=== PATIENT | male | born 1980 | race Caucasian/White ===

== ENCOUNTER 2021-02-02 11:05 | Emergency (ER) | payer MEDICAID ==
[~2021-02-02] VITALS: Ht 172.7 cm; Wt 77.1 kg
--- NOTE | 2021-02-02 11:53 | Diagnostic Imaging Report ---
Clinical indication: Patient stated that he has had a headache for 3 days. Exam: Axial CT scan of the brain without IV contrast with coronal and sagittal reformatted images. Auto Exposure Controls were utilized during the CT exam to meet ALARA standards for radiation dose reduction. Comparison: None. Findings: There is a 5 mm circumscribed area of fat density in the suprasellar cistern region just posterior to the clinoid region which may represent a small lipoma versus dermoid. There is note of slight diffuse increased density involving the dural venous sinuses. Otherwise, there is no evidence of acute cerebral infarct, intracranial hemorrhage, or gross mass effect. The brain parenchymal volume appears appropriate for patient's age. There is normal valladares-white matter distinction. There is no significant midline shift or herniation. There is no evidence of hydrocephalus. The basal cisterns are unremarkable. The skull, extracranial soft tissue, and orbits are unremarkable. There is mild ethmoid sinus disease. Temporal bones show no significant abnormality. Impression: 1: There is no evidence of acute cerebral infarct, intracranial hemorrhage, brain herniation or midline shift. 2: There is slight increased density throughout the dural venous sinuses which may be seen with hemoconcentration and/or dehydration. Clinical correlation is suggested. 3: Incidental note of a 5 mm circumscribed area of fat density in the suprasellar region which may represent a lipoma or dermoid. 4: Mild ethmoid sinus disease. Otherwise, unremarkable CT scan of the brain. Results of this report discussed with Dr. Prem Paul via the telephone on 02/02/2021 at 1148 hours. Dictated by: Dictated on workstation # [id number]
--- NOTE | 2021-02-02 12:03 | Diagnostic Imaging Report ---
Indication: Chest pain. No prior studies are available for comparison. The heart size is normal. Lungs are clear. No infiltrates are detected. No effusion or pneumothorax is identified. IMPRESSION: No acute cardiopulmonary process is detected. Dictated by: Dictated on workstation # [id number]
[2021-02-02] MEDS ORDERED: fentaNYL INJ 100 MCG/2 ML AMP IVP STA (12:17)
[2021-02-02] MEDS ORDERED: KETOROLAC 30 MG/ML VIAL IVP STA (12:17)
[2021-02-02] MEDS ORDERED: ORPHENADRINE 60 MG/2 ML (NORFLEX) AMP (ED ONLY) IVP STA (12:17)
[2021-02-02 12:23] LABS: BASOPHILS % (AUTO) 0 % (0-10); EOSINOPHILS # (AUTO) 0.2 10^3/uL (0.0-0.3); EOSINOPHILS % (AUTO) 2 % (0-10); HEMATOCRIT 47 % (40-54); HEMOGLOBIN 15.9 G/DL (13.3-17.7); LYMPHOCYTES # (AUTO) 2.7 X 10^3 (1.0-4.0); LYMPHOCYTES % (AUTO) 28 % (12-44); MEAN CORPUSCULAR HEMOGLOBIN 29 PG (25-34); MEAN CORPUSCULAR HGB CONC 34 G/DL (32-36); MEAN CORPUSCULAR VOLUME 85 FL (80-99); MEAN PLATELET VOLUME 10.7 FL (7.4-10.4); MONOCYTES # (AUTO) 0.8 X 10^3 (0.0-1.0); MONOCYTES % (AUTO) 9 % (0-12); NEUTROPHILS # (AUTO) 5.7 X 10^3 (1.8-7.8); NEUTROPHILS % (AUTO) 60 % (42-75); PLATELET COUNT 307 10^3/uL (130-400); WHITE BLOOD COUNT 9.5 10^3/uL (4.3-11.0)
--- NOTE | 2021-02-02 12:24 | ED General ---
General Chief Complaint: Neuro-Stroke Like Symptoms Stated Complaint: RT SIDED WEAKNESS; ALTERED VISION Nursing Triage Note: Patient reports he has had a headache for 3 days, also reports blurred vision, right sided weakness, decreased sensation on the right side, and intermittent right chest and shoulder pain for 3 days. Source of Information: Patient History of Present Illness Date Seen by Provider: Feb 02, 2021 Time Seen by Provider: 11:17 Initial Comments 40-year-old male presenting with complaints of right-sided weakness and numbness as well as pain in his neck and head. He states this has been going on for the last 3 days. He has had some blurred vision and intermittent spots in his vision. He has been taking medicine for blood pressure as well as multiple psych meds has not taken anything for over a month now. He denies any trauma to his head or neck. He went to the urgent care clinic at the insistence of his and the were concerned he might be having a stroke and sent him to the ER. He denies any fever or chills. He has had no nausea, vomiting, cough, abdominal pain, diarrhea, pain with urination. He does have some right-sided chest pain going into his arm. Timing/Duration: 3-4 Days Severity: Moderate Associated Systoms: No Cough, No Diaphoresis, No Fever/Chills; Headaches; No Loss of Appetite; Malaise; No Nausea/Vomiting, No Rash, No Seizure, No Shortness of Air, No Syncope Allergies and Home Medications Allergies Coded Allergies: red dye (Verified Allergy, Unknown, 02/02/21) Home Medications Cyclobenzaprine HCl 10 Mg Tablet, 10 MG PO Q8H PRN for SPASMS Prescribed by: HOWIE MADSEN on 02/02/21 1403 Duloxetine HCl 30 Mg Capsule.dr, 30 MG PO DAILY Prescribed by: HOWIE MADSEN on 02/02/21 1403 Hydrocodone/Acetaminophen 1 Each Tablet, 1 TAB PO Q4H PRN for PAIN-SEVERE (8-10) Prescribed by: HOWIE MADSEN on 02/02/21 1404 Hydroxyzine Pamoate 50 Mg Capsule, 50 MG PO BID Prescribed by: HOWIE MADSEN on 02/02/21 1403 Lisinopril 10 Mg Tablet, 10 MG PO DAILY Prescribed by: HOWIE MADSEN on 02/02/21 1403 Quetiapine Fumarate 100 Mg Tablet, 100 MG PO BID Prescribed by: HOWIE MADSEN on 02/02/21 1403 Patient Home Medication List Home Medication List Reviewed: Yes Review of Systems Review of Systems Constitutional: No chills, No fever EENTM: see HPI, blurred vision; No ear pain Respiratory: No cough, No short of breath Cardiovascular: see HPI, chest pain (Right-sided chest pain) Gastrointestinal: no symptoms reported Genitourinary: no symptoms reported Musculoskeletal: see HPI, neck pain (Pain in his neck at the base of his skull) Skin: no symptoms reported; No rash Psychiatric/Neurological: Anxiety, Headache Hematologic/Lymphatic: Denies Blood Clots Past Qrsfrip-Zfkmxj-Paafab Hx Patient Social History Tobacco Use?: Yes Tobacco type used: Cigarettes Smoking Status: Current Everyday Smoker Smokeless Tobacco Frequency: Current Everyday User Substance use?: No Alcohol Use?: Yes Alcohol type: Beer Alcohol Frequency: Couple times a week Pt feels they are or have been: No Past Medical History Surgery/Hospitalization HX: Patient reports a history of hypertension, appendectomy and colectomy. Physical Exam Vital Signs Vital Signs - First Documented 02/02/21 11:53 Temp 37.0 Pulse 87 Resp 18 B/P (MAP) 132/81 (98) Pulse Ox 97 O2 Delivery Room Air Capillary Refill : Less Than 3 Seconds Height, Weight, BMI Height: '" Weight: lbs. oz. kg; 25.00 BMI Method: General Appearance: WD/WN, Anxious HEENT: PERRL/EOMI, Normal ENT Inspection, Pharynx Normal Neck: Full Range of Motion, Normal Inspection, Supple, Tender Lateral (Tender to palpation to the paraspinal muscles of the upper part of his neck bilaterally) Respiratory: Chest Non Tender, Lungs Clear, Normal Breath Sounds, No Accessory Muscle Use, No Respiratory Distress Cardiovascular: Regular Rate, Rhythm, Normal Peripheral Pulses Gastrointestinal: Normal Bowel Sounds, No Pulsatile Mass, Non Tender, Soft Rectal: Deferred Extremity: Normal Capillary Refill, Normal Inspection, Normal Range of Motion, Non Tender, No Pedal Edema Neurologic/Psychiatric: Alert, Oriented x3, edge banding machine offbearer II-XII Norm as Tested; No Facial Droop, No Motor Weakness (Reports sensation of weakness of the right side but has equal firebrick layer and no drift of arm or leg on the right); Sensory Deficit (He reports that sensation is slightly decreased on the right side compared to the left from his face all the way down his body) Skin: Normal Color, Warm/Dry Progress/Results/Core Measures Suspected Sepsis SIRS Temperature: Pulse: 87 Respiratory Rate: 18 Laboratory Tests 02/02/21 11:50: White Blood Count 9.5 Blood Pressure 132 /81 Mean: 98 Laboratory Tests 02/02/21 11:50: Creatinine 0.85, INR Comment 0.9, Platelet Count 307, Total Bilirubin 0.8 Results/Orders Lab Results Laboratory Tests Test 02/02/21 11:50 02/02/21 12:15 Range/Units White Blood Count 9.5 4.3-11.0 10^3/uL Red Blood Count 5.54 4.35-5.85 10^6/uL Hemoglobin 15.9 13.3-17.7 G/DL Hematocrit 47 40-54 % Mean Corpuscular Volume 85 80-99 FL Mean Corpuscular Hemoglobin 29 25-34 PG Mean Corpuscular Hemoglobin Concent 34 32-36 G/DL Red Cell Distribution Width 14.3 10.0-14.5 % Platelet Count 307 130-400 10^3/uL Mean Platelet Volume 10.7 H 7.4-10.4 FL Immature Granulocyte % (Auto) 0 % Neutrophils (%) (Auto) 60 42-75 % Lymphocytes (%) (Auto) 28 12-44 % Monocytes (%) (Auto) 9 0-12 % Eosinophils (%) (Auto) 2 0-10 % Basophils (%) (Auto) 0 0-10 % Neutrophils # (Auto) 5.7 1.8-7.8 X 10^3 Lymphocytes # (Auto) 2.7 1.0-4.0 X 10^3 Monocytes # (Auto) 0.8 0.0-1.0 X 10^3 Eosinophils # (Auto) 0.2 0.0-0.3 10^3/uL Basophils # (Auto) 0.0 0.0-0.1 10^3/uL Immature Granulocyte # (Auto) 0.0 0.0-0.1 10^3/uL Prothrombin Time 12.7 12.2-14.7 SEC INR Comment 0.9 0.8-1.4 Activated Partial Thromboplast Time 28 24-35 SEC Sodium Level 138 135-145 MMOL/L Potassium Level 4.2 3.6-5.0 MMOL/L Chloride Level 100 98-107 MMOL/L Carbon Dioxide Level 26 21-32 MMOL/L Anion Gap 12 5-14 MMOL/L Blood Urea Nitrogen 16 7-18 MG/DL Creatinine 0.85 0.60-1.30 MG/DL Estimat Glomerular Filtration Rate > 60 BUN/Creatinine Ratio 19 Glucose Level 101 70-105 MG/DL Calcium Level 9.5 8.5-10.1 MG/DL Corrected Calcium 9.3 8.5-10.1 MG/DL Total Bilirubin 0.8 0.1-1.0 MG/DL Aspartate Amino Transf (AST/SGOT) 18 5-34 U/L Alanine Aminotransferase (ALT/SGPT) 28 0-55 U/L Alkaline Phosphatase 78 40-136 U/L Troponin I < 0.30 <0.30 NG/ML Total Protein 7.7 6.4-8.2 GM/DL Albumin 4.3 3.2-4.5 GM/DL Serum Alcohol < 10 <10 MG/DL Urine Color YELLOW Urine Clarity CLEAR Urine pH 6.0 5-9 Urine Specific [place] 1.020 1.016-1.022 Urine Protein NEGATIVE NEGATIVE Urine Glucose (UA) NEGATIVE NEGATIVE Urine Ketones NEGATIVE NEGATIVE Urine Nitrite NEGATIVE NEGATIVE Urine Bilirubin NEGATIVE NEGATIVE Urine Urobilinogen 0.2 < = 1.0 MG/DL Urine Leukocyte Esterase NEGATIVE NEGATIVE Urine RBC (Auto) NEGATIVE NEGATIVE Urine RBC NONE /HPF Urine WBC NONE /HPF Urine Crystals NONE /LPF Urine Bacteria NEGATIVE /HPF Urine Casts NONE /LPF Urine Mucus NEGATIVE /LPF Urine Culture Indicated NO Urine Opiates Screen NEGATIVE NEGATIVE Urine Oxycodone Screen NEGATIVE NEGATIVE Urine Methadone Screen NEGATIVE NEGATIVE Urine Propoxyphene Screen NEGATIVE NEGATIVE Urine Barbiturates Screen NEGATIVE NEGATIVE Ur Tricyclic Antidepressants Screen NEGATIVE NEGATIVE Urine Phencyclidine Screen NEGATIVE NEGATIVE Urine Amphetamines Screen NEGATIVE NEGATIVE Urine Methamphetamines Screen NEGATIVE NEGATIVE Urine Benzodiazepines Screen NEGATIVE NEGATIVE Urine Cocaine Screen NEGATIVE NEGATIVE Urine Cannabinoids Screen POSITIVE H NEGATIVE My Orders Orders - HOWIE MADSEN MD Cbc With Automated Diff (02/02/21 11:23) Protime With Inr (02/02/21 11:23) Partial Thromboplastin Time (02/02/21 11:23) Comprehensive Metabolic Panel (02/02/21 11:23) Troponin I Fs (02/02/21 11:23) Ua Culture If Indicated (02/02/21 11:23) Chest 1 View Ap/Pa Only (02/02/21 11:23) Ekg Tracing (02/02/21 11:23) Accucheck Stat ONCE (02/02/21 11:23) Ed Iv/Invasive Line Start (02/02/21 11:23) Vital Signs Stroke Patient Q15M (02/02/21 11:23) Ct Head Wo-R/O Stroke (02/02/21 11:23) O2 (02/02/21 11:23) Intake & Output 06,14,22 (02/02/21 11:23) Monitor-Rhythm Ecg Trace Only (02/02/21 11:23) Dysphagia Screening Tool (02/02/21 11:23) Drug Screen Stat (Urine) (02/02/21 11:23) Alcohol (02/02/21 11:23) Ct Angio Head/Neck (02/02/21 12:17) Orphenadrine Inj (Ed Only) (Norflex Inje (02/02/21 12:17) Ketorolac Injection (Toradol Injection) (02/02/21 12:17) Fentanyl Inj (Sublimaze Injection) (02/02/21 12:17) Iohexol Injection (Omnipaque 350 Mg/Ml 1 (02/02/21 12:30) Received Contrast (Hold Metformin- Contr (02/02/21 12:30) Sodium Chloride Flush (Catheter Flush Sy (02/02/21 12:30) Ns (Ivpb) (Sodium Chloride 0.9% Ivpb Bag (02/02/21 12:30) Medications Given in ED Current Medications Medications Dose Ordered Sig/Rafa Route Start Time Stop Time Status Last Admin Dose Admin Iohexol 75 ml ONCE ONCE IV 02/02/21 12:30 02/02/21 12:31 DC 02/02/21 12:42 75 ML Sodium Chloride 10 ml NEEDED PRN IV 02/02/21 12:30 02/02/21 14:13 DC 02/02/21 12:42 10 ML Sodium Chloride 100 ml ONCE ONCE IV 02/02/21 12:30 02/02/21 12:31 DC 02/02/21 12:42 80 ML Vital Signs/I&O 02/02/21 02/02/21 11:53 14:07 Temp 37.0 Pulse 87 64 Resp 18 16 B/P (MAP) 132/81 (98) 125/71 Pulse Ox 97 97 O2 Delivery Room Air Room Air Capillary Refill : Less Than 3 Seconds Blood Pressure Mean: 98 Progress Note #1: Progress Note Basic labs as well as electrocardiogram and CT head were obtained. Differential diagnosis includes stroke, hypertensive crisis, sinusitis, cervical spine disease, pinched nerve with radiculopathy, anxiety, electrolyte imbalance, UTI, substance abuse Progress Note #2: Progress Note CT head was read out as no acute bleed or definite stroke. His NIH scale was scored as a 1 since he reported slight decreased sensation on the right side compared to the left. He otherwise had no deficits. Will order a CT angiogram to further evaluate his blood vessels and vertebral vessels. He requested something for pain to help with his neck pain and headache so we will try Toradol, Norflex, fentanyl. Progress Note #3: Progress Note Labs are all stable without acute significant normality. He had marijuana or THC show with his drug screen but otherwise it was all negative. The pain was doing better after treatment with medicine. His symptoms seem to be improved as his pain improved. His CT angiogram did not demonstrate any large vessel or vertebral artery disease. Updated patient and his significant other over the phone. Will try refilling some of his medicines and prescribe a small amount of muscle relaxer and pain medicine. Will prescribe low-dose lisinopril for blood pressure has he had reportedly had elevated diastolic pressures at home. He has an appointment at 1045 tomorrow to get established with a new provider for care so encouraged to keep that appointment since ERIN Rogel retired from the clinic. ECG Initial ECG Impression Date: Feb 02, 2021 Initial ECG Impression Time: 12:14 Initial ECG Rate: 70 Initial ECG Rhythm: Normal Sinus Initial ECG Comparisson: No Previous ECG Available Comment Normal sinus rhythm with a heart rate of [address] elevation. OH interval 126 ms. QT interval 384 ms with a QTc interval 415 ms. No prior tracing available for comparison. Diagnostic Imaging Diagonstic Imaging: CT Plain Films/CT/US/NM/MRI: head Comments [facility] [place], [place] NAME: JHON SEPULVEDA MED REC#: [id number] PT STATUS: REG ER : 1980 PHYSICIAN: HOWIE MADSEN MD ADMIT DATE: 02/02/21/ER FS Draft Date of Exam:02/02/21 CT HEAD WO-R/O STROKE Clinical indication: Patient stated that he has had a headache for 3 days. Exam: Axial CT scan of the brain without IV contrast with coronal and sagittal reformatted images. Auto Exposure Controls were utilized during the CT exam to meet ALARA standards for radiation dose reduction. Comparison: None. Findings: There is a 5 mm circumscribed area of fat density in the suprasellar cistern region just posterior to the clinoid region which may represent a small lipoma versus dermoid. There is note of slight diffuse increased density involving the dural venous sinuses. Otherwise, there is no evidence of acute cerebral infarct, intracranial hemorrhage, or gross mass effect. The brain parenchymal volume appears appropriate for patient's age. There is normal valladares-white matter distinction. There is no significant midline shift or herniation. There is no evidence of hydrocephalus. The basal cisterns are unremarkable. The skull, extracranial soft tissue, and orbits are unremarkable. There is mild ethmoid sinus disease. Temporal bones show no significant abnormality. Impression: 1: There is no evidence of acute cerebral infarct, intracranial hemorrhage, brain herniation or midline shift. 2: There is slight increased density throughout the dural venous sinuses which may be seen with hemoconcentration and/or dehydration. Clinical correlation is suggested. 3: Incidental note of a 5 mm circumscribed area of fat density in the suprasellar region which may represent a lipoma or dermoid. 4: Mild ethmoid sinus disease. Otherwise, unremarkable CT scan of the brain. Results of this report discussed with Dr. Howie Madsen via the telephone on 02/02/2021 at 1148 hours. Dictated on workstation # [id number] Dict: 02/02/21 1138 Trans: 02/02/21 1153 [facility] [id number] Interpreted by: RYAN GARCIA MD Electronically signed by: Reviewed: Reviewed by Me, Discussed w/Radiologist Diagonstic Imaging: Xray Plain Films/CT/US/NM/MRI: chest Comments [facility] [place] [place] NAME: JHON SEPULVEDA [facility] REC#: [id number] PT STATUS: REG ER : 1980 PHYSICIAN: HOWIE MADSEN MD ADMIT DATE: 02/02/21/ER FS Draft Date of Exam:02/02/21 CHEST 1 VIEW AP/PA ONLY Indication: Chest pain. No prior studies are available for comparison. The heart size is normal. Lungs are clear. No infiltrates are detected. No effusion or pneumothorax is identified. IMPRESSION: No acute cardiopulmonary process is detected. Dictated on workstation # [id number] Dict: 02/02/21 1202 Trans: 02/02/21 1202 [facility] [id number] Interpreted by: VIRGILIO BARR MD Electronically signed by: Reviewed: Reviewed by Me Diagonstic Imaging: CT (Angiography) Plain Films/CT/US/NM/MRI: head (and neck) Comments [facility] [place] NAME: DERICKCYNDEEJHON D [facility] REC#: [id number] PT STATUS: REG ER : 1980 PHYSICIAN: HOWIE MADSEN MD ADMIT DATE: 02/02/21/ER FS Draft Date of Exam:02/02/21 CT ANGIO HEAD/NECK PROCEDURE: CT angiography of the head and CT angiography of the neck with and without contrast. TECHNIQUE: Contiguous noncontrast images were obtained from the skull base through the vertex. After intravenous contrast administration, helical CT angiography of the neck was performed. Source data was reformatted into 3D MIP projections. Delayed post contrast acquisition was also obtained. Auto Exposure Controls were utilized during the CT exam to meet ALARA standards for radiation dose reduction. INDICATION: Right-sided weakness and numbness for 3 days. Blurry vision. COMPARISON: CT head performed earlier the same date. FINDINGS: CTA Neck: The visualized portions of the aortic arch demonstrate no evidence of aneurysm or dissection. There is conventional branching pattern of the great vessels of the aorta. The brachiocephalic artery is normal in course and caliber. The right and left common carotid origins are unremarkable. The origin of the left subclavian artery is patent. The common carotid arteries and internal carotid arteries demonstrate a normal course and caliber without focal stenosis. Minimal atherosclerotic plaque is seen in the carotid bulbs. No evidence of dissection in the carotid systems. The external carotid arteries are patent and unremarkable. The vertebral arteries are codominant. The origin of the right vertebral artery is seen and is unremarkable. The origin of the left vertebral artery is seen and is unremarkable. There is no focal stenosis seen within the neck. There is no dissection. The vertebral arteries are well visualized to up to the level of the basilar artery. The osseous structures of the cervical spine are unremarkable. Included views through the lung apices demonstrate no focal consolidation. CTA brain: The intracranial portion of the bilateral ICA are unremarkable without stenosis or aneurysm. A small amount of calcified atherosclerotic plaque is seen in the orozco of the intracranial portion of the right ICA. No stenosis is seen in the bilateral anterior, middle, and posterior cerebral arteries. Hypoplastic right A1 segment is noted. No evidence of aneurysm the [place]. In the posterior circulation, both of the vertebral arteries demonstrate normal opacification. The vertebral arteries are codominant. Both the right and left PICA arteries are identified. The basilar artery is normal in course and caliber. The terminal branch vessels including the superior cerebellar arteries unremarkable. No filling defects are seen in the dural venous sinuses. 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 No associated enhancement is seen at this lesion. No abnormal enhancement is seen within the brain. IMPRESSION: 1. No stenosis or aneurysm in the [place]. 2. No stenosis or dissection the bilateral carotid and vertebral arteries. 3. No evidence of dural venous sinus thrombosis. Dictated on workstation # [id number] Dict: 02/02/21 1252 Trans: 02/02/21 1303 [facility] [id number] Interpreted by: KEVIN BURGESS DO Electronically signed by: Reviewed: Reviewed by Me Departure Impression Primary Impression: Cervical pain (neck) Additional Impressions: Right sided weakness Blurred vision, bilateral Disposition: 01 HOME, SELF-CARE Condition: Stable Departure-Patient Inst. Decision time for Depature: 13:52 Referrals: NO,LOCAL PHYSICIAN (PCP/Family) Primary Care Physician Patient Instructions: Neck Pain ED, Weakness ED Add. Discharge Instructions: Take medicine as prescribed to help with blood pressure, muscle spasms, neck pa in, anxiety. Check back with clinic for continued problems and to get re-established with provider to continue on medicine. If you have continued pain/problems then you may need to have an MRI to look for pinched nerve in your neck All discharge instructions reviewed with patient and/or family. Voiced understanding. Scripts Duloxetine HCl (Duloxetine HCl) 30 Mg Capsule.dr 30 MG PO DAILY for 14 Days, #14 CAP 0 Refills Prov: HOWIE MADSEN MD 02/02/21 Quetiapine Fumarate (Seroquel) 100 Mg Tablet 100 MG PO BID for 14 Days, #28 TAB 0 Refills Prov: HOWIE MADSEN MD 02/02/21 Cyclobenzaprine HCl (Cyclobenzaprine HCl) 10 Mg Tablet 10 MG PO Q8H PRN for SPASMS for 14 Days, #42 TAB 0 Refills Prov: HOWIE MADSEN MD 02/02/21 Hydrocodone/Acetaminophen (Hydrocodone-Acetamin 5-325 mg) 1 Each Tablet 1 TAB PO Q4H PRN for PAIN-SEVERE (8-10) for 3 Days, #18 TAB 0 Refills Prov: HOWIE MADSEN MD 02/02/21 Hydroxyzine Pamoate (Hydroxyzine Pamoate) 50 Mg Capsule 50 MG PO BID for anxiety for 14 Days, #28 CAP 0 Refills Prov: HOWIE MADSEN MD 02/02/21 Lisinopril (Lisinopril) 10 Mg Tablet 10 MG PO DAILY for Blood Pressure for 14 Days, #14 TAB 0 Refills Prov: HOWIE MADSEN MD 02/02/21 NIH Stroke Scale NIH Stroke Scale NIH : Select: Initial Level of Consciousness: 0=Alert Level of Consciousness-Questio: 0=Answers both month/age LOC Commands: 0=Performs both tasks Gaze: 0=Normal Visual [place]: 0=No visual loss Facial Movement (Facial Paresi: 0=Normal symmetrical mnt Motor Function-Arms Right: 0=No drift Motor Function-Arms Left: 0=No drift Motor Function-Legs Right: 0=No drift Motor Function-Legs Left: 0=No drift Limb Ataxia: 0=Absent Sensory: 1=Mild to Moderate loss Best Language: 0=No aphasia Dysarthria: 0=Normal Extinction & Inattention: 0=No abnormality NIH Stroke Scale Score: 1 HOWIE MADSEN MD Feb 02, 2021 12:24
[2021-02-02 12:26] LABS: BILIRUBIN,URINE NEGATIVE (NEGATIVE); CLARITY,URINE CLEAR; COLOR,URINE YELLOW; GLUCOSE, URINE (UA) NEGATIVE (NEGATIVE); KETONES,URINE NEGATIVE (NEGATIVE); LEUKOCYTE ESTERASE ,URINE NEGATIVE (NEGATIVE); NITRITE,URINE NEGATIVE (NEGATIVE); PROTEIN,URINE NEGATIVE (NEGATIVE)
[2021-02-02] MEDS ORDERED: HOLD METFORMIN - RECEIVED CONTRAST 20 ML VIAL IV SCH (12:30)
[2021-02-02] MEDS ORDERED: CATHETER FLUSH 10 ML SYR IV PRN (12:30)
[2021-02-02] MEDS ORDERED: IOHEXOL 350 MG/ML 100 ML (OMNIPAQUE 350) VIAL IV ONE (12:30)
[2021-02-02] MEDS ORDERED: NS 100 ML (IVPB) BAG IV ONE (12:30)
[2021-02-02 12:32] LABS: INR 0.9 (0.8-1.4); PROTHROMBIN TIME PATIENT 12.7 SEC (12.2-14.7)
[2021-02-02 12:37] LABS: BACTERIA,URINE NEGATIVE /HPF
[2021-02-02 12:45] LABS: CARBON DIOXIDE 26 MMOL/L (21-32); CHLORIDE 100 MMOL/L (98-107); POTASSIUM 4.2 MMOL/L (3.6-5.0); SODIUM 138 MMOL/L (135-145)
[2021-02-02 12:46] LABS: ALANINE AMINOTRANSFERASE 28 U/L (0-55); ALKALINE PHOSPHATASE 78 U/L (40-136); BILIRUBIN,TOTAL 0.8 MG/DL (0.1-1.0); BUN/CREATININE RATIO 19; CALCIUM 9.5 MG/DL (8.5-10.1); CREATININE SERUM 0.85 MG/DL (0.60-1.30); GFR ESTIMATED > 60; GLUCOSE 101 MG/DL (70-105)
[2021-02-02 12:48] LABS: ALBUMIN 4.3 GM/DL (3.2-4.5); TOTAL PROTEIN 7.7 GM/DL (6.4-8.2)
[2021-02-02 12:57] LABS: AMPHETAMINE SCREEN, URINE NEGATIVE (NEGATIVE); BARBITURATE SCREEN URINE NEGATIVE (NEGATIVE); BENZODIAZEPINES SCREEN URINE NEGATIVE (NEGATIVE); CANNABINOID SCREEN, URINE POSITIVE (NEGATIVE); COCAINE SCREEN URINE NEGATIVE (NEGATIVE); METHADONE STAT NEGATIVE (NEGATIVE); METHAMPHETAMINE SCREEN URINE S NEGATIVE (NEGATIVE); OPIATE SCREEN URINE NEGATIVE (NEGATIVE); OXYCODONE STAT NEGATIVE (NEGATIVE); PROPOXYPHENE STAT NEGATIVE (NEGATIVE); TRICYCLIC ANTIDEPRESSANTS SCRE NEGATIVE (NEGATIVE)
--- NOTE | 2021-02-02 13:03 | Diagnostic Imaging Report ---
PROCEDURE: CT angiography of the head and CT angiography of the neck with and without contrast. TECHNIQUE: Contiguous noncontrast images were obtained from the skull base through the vertex. After intravenous contrast administration, helical CT angiography of the neck was performed. Source data was reformatted into 3D MIP projections. Delayed post contrast acquisition was also obtained. Auto Exposure Controls were utilized during the CT exam to meet ALARA standards for radiation dose reduction. INDICATION: Right-sided weakness and numbness for 3 days. Blurry vision. COMPARISON: CT head performed earlier the same date. FINDINGS: CTA Neck: The visualized portions of the aortic arch demonstrate no evidence of aneurysm or dissection. There is conventional branching pattern of the great vessels of the aorta. The brachiocephalic artery is normal in course and caliber. The right and left common carotid origins are unremarkable. The origin of the left subclavian artery is patent. The common carotid arteries and internal carotid arteries demonstrate a normal course and caliber without focal stenosis. Minimal atherosclerotic plaque is seen in the carotid bulbs. No evidence of dissection in the carotid systems. The external carotid arteries are patent and unremarkable. The vertebral arteries are codominant. The origin of the right vertebral artery is seen and is unremarkable. The origin of the left vertebral artery is seen and is unremarkable. There is no focal stenosis seen within the neck. There is no dissection. The vertebral arteries are well visualized to up to the level of the basilar artery. The osseous structures of the cervical spine are unremarkable. Included views through the lung apices demonstrate no focal consolidation. CTA brain: The intracranial portion of the bilateral ICA are unremarkable without stenosis or aneurysm. A small amount of calcified atherosclerotic plaque is seen in the orozco of the intracranial portion of the right ICA. No stenosis is seen in the bilateral anterior, middle, and posterior cerebral arteries. Hypoplastic right A1 segment is noted. No evidence of aneurysm the little traverse of Muller. In the posterior circulation, both of the vertebral arteries demonstrate normal opacification. The vertebral arteries are codominant. Both the right and left PICA arteries are identified. The basilar artery is normal in course and caliber. The terminal branch vessels including the superior cerebellar arteries unremarkable. No filling defects are seen in the dural venous sinuses. 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 No associated enhancement is seen at this lesion. No abnormal enhancement is seen within the brain. IMPRESSION: 1. No stenosis or aneurysm in the little traverse of Muller. 2. No stenosis or dissection the bilateral carotid and vertebral arteries. 3. No evidence of dural venous sinus thrombosis. Dictated by: Dictated on workstation # [id number]
[2021-02-02] MEDS ORDERED: HYDR50CA3 PO (14:03)
[2021-02-02] MEDS ORDERED: QUET100T PO (14:03)
[2021-02-02] MEDS ORDERED: DULO30CA49 PO (14:03)
[2021-02-02] MEDS ORDERED: ACHD5005 PO (14:03)
[2021-02-02] MEDS ORDERED: CYCL10TA9 PO (14:03)
[2021-02-02] MEDS ORDERED: LISI10TA25 PO (14:03)
[2021-02-02 14:07] VITALS: BP 125/71
== END 2021-02-02 14:13 | disposition home or self-care (01) ==
LOC: ER FS 11:07
DX: M54.2 Cervicalgia (principal); R53.1 Weakness; H53.8 Other visual disturbances; F17.210 Nicotine dependence, cigarettes, uncomplicated
CPT/HCPCS: 36415; 70450; 70496; 70498; 71045; 80053; 80306; 80320; 81000; 84484; 85025; 85610; 85730; 93005; 93041; 96374; 96375

== ENCOUNTER 2023-02-16 21:36 | Emergency (ER) | payer MEDICAID ==
[~2023-02-16 21:36] MED LIST: ACHD5005 PO; CYCL10TA25 PO; DULO30CA49 PO; HYDR50CA3 PO; LISI10TA25 PO; QUET100T PO
[2023-02-16] MEDS ORDERED: CYCLOBENZAPRINE 10 MG (FLEXERIL) TAB PO STA (21:55)
[2023-02-16] MEDS ORDERED: KETOROLAC 30 MG/ML VIAL IM ONE (22:00)
[2023-02-16] MEDS ORDERED: HYDROcodone/APAP 5 MG/325 MG (LORTAB) TAB PO ONE (22:00)
--- NOTE | 2023-02-16 22:02 | ED Back Pain ---
General Chief Complaint: Lower Extremity Stated Complaint: L KNEE/LOWER BACK PAIN Nursing Triage Note: Pt complaining of left knee pain and left upper leg pain. Pt states he was wrestling with his daughter ky and felt a "pop" in his knee Source of Information: Patient Exam Limitations: No Limitations History of Present Illness Date Seen by Provider: Feb 16, 2023 Time Seen by Provider: 21:43 Initial Comments This 42-year-old gentleman presents to the emergency room with pain in the left lower back that radiates down through the buttock and into the posterior knee region. This pain started abruptly as he was wrestling with his adult sized daughter about 1600. He is ambulatory but states that entire area hurts to bear weight. He does not appear to have any focal musculoskeletal injury. He did not believe there to be any specific blunt trauma during the wrestling. He did lift her off the ground at one point in time and onset of pain started after that. He has not taken any medications or other treatments for the pain. He denies having any history of lower back problems. No lower extremity weakness, bowel or bladder dysfunction, or saddle paresthesia was described. Allergies and Home Medications Allergies Coded Allergies: red dye (Verified Allergy, Unknown, 02/02/21) prednisone (Verified Adverse Reaction, Unknown, Agitation, 02/16/23) Agitation Patient Home Medication List Home Medication List Reviewed: Yes Cyclobenzaprine HCl (Cyclobenzaprine HCl) 10 Mg Tablet, 10 MG PO Q8H PRN for SPASMS Prescribed by: HOWIE MADSEN on 02/02/21 1403 Cyclobenzaprine HCl (Cyclobenzaprine HCl) 10 Mg Tablet, 10 MG PO HS PRN for SPASMS Prescribed by: JEFFREY CROWLEY on 02/16/23 2215 Duloxetine HCl (Duloxetine HCl) 30 Mg Capsule.dr, 30 MG PO DAILY Prescribed by: HOWIE MADSEN on 02/02/21 1403 Hydrocodone/Acetaminophen (Hydrocodone-Acetamin 5-325 mg) 1 Each Tablet, 1 TAB PO Q4H PRN for PAIN-SEVERE (8-10) Prescribed by: HOWIE MADSEN on 02/02/21 1404 Hydroxyzine Pamoate (Hydroxyzine Pamoate) 50 Mg Capsule, 50 MG PO BID Prescribed by: HOWIE MADSEN on 02/02/21 1403 Lisinopril (Lisinopril) 10 Mg Tablet, 10 MG PO DAILY Prescribed by: HOWIE MADSEN on 02/02/21 1403 Quetiapine Fumarate (Seroquel) 100 Mg Tablet, 100 MG PO BID Prescribed by: HOWIE MADSEN on 02/02/21 1403 Tramadol HCl (Tramadol HCl) 50 Mg Tablet, 50 MG PO Q6H PRN for PAIN BREAKTROUGH Prescribed by: JEFFREY CROWLEY on 02/16/23 2223 Review of Systems Constitutional: no symptoms reported EENTM: no symptoms reported Respiratory: no symptoms reported Cardiovascular: no symptoms reported Gastrointestinal: no symptoms reported Genitourinary: no symptoms reported Musculoskeletal: see HPI Skin: no symptoms reported Psychiatric/Neurological: See HPI Past Uszywfv-[id number]-[id number] Hx Patient Social History Tobacco Use?: Yes Tobacco type used: Cigarettes Smoking Status: Current Everyday Smoker Use of E-Cig and/or Vaping dev: No Substance use?: No Alcohol Use?: No Pt feels they are or have been: No Past Medical History Surgeries: Yes Abdominal (Partial small bowel resection with appendectomy), Appendectomy Respiratory: No Cardiac: No Neurological: No Genitourinary: No Gastrointestinal: No Musculoskeletal: No Endocrine: No Cancer: No Psychosocial: Yes ("Explosive disorder") Sleep Difficulties, Anxiety, Depression Physical Exam Vital Signs Vital Signs - First Documented 02/16/23 21:39 Temp 36.7 Pulse 98 Resp 16 B/P (MAP) 131/84 (100) Pulse Ox 98 O2 Delivery Room Air Capillary Refill : Less Than 3 Seconds Height, Weight, BMI Height: '" Weight: lbs. oz. kg; 25.00 BMI Method: General Appearance: No Apparent Distress, WD/WN HEENT: Normal ENT Inspection Neck: Normal Inspection Cardiovascular: Regular Rate, Rhythm, No Murmur Respiratory: Lungs Clear, Normal Breath Sounds, No Accessory Muscle Use Gastrointestinal: Normal Bowel Sounds, Non Tender, Soft Back: Other (Tenderness in the left lower lumbar region and into the SI joint region. Spasmed muscles palpable) Extremity: Normal Inspection, No Pedal Edema, Other (General tenderness in the posterior left knee and tenderness extending all the way up through the posterior thigh, buttock, and lower back) Neurologic/Psychiatric: Alert, Oriented x3, No Motor/Sensory Deficits, Normal Mood/Affect Skin: Normal Color, Warm/Dry Progress/Results/Core Measures Results/Orders My Orders Orders - JEFFREY LOVE MD Ketorolac Injection (Toradol Injection) (02/16/23 22:00) Hydrocodone/Apap 5/325 Tablet (Lortab 5 (02/16/23 22:00) Cyclobenzaprine Tablet (Flexeril Tablet) (02/16/23 21:55) Medications Given in ED Current Medications Medications Dose Ordered Sig/Rafa Route Start Time Stop Time Status Last Admin Dose Admin Acetaminophen/ Hydrocodone Bitart 1 ea ONCE ONCE PO 02/16/23 22:00 02/16/23 22:01 DC 02/16/23 22:03 1 EA Ketorolac Tromethamine 30 mg ONCE ONCE IM 02/16/23 22:00 02/16/23 22:01 DC 02/16/23 22:03 30 MG Vital Signs/I&O 02/16/23 02/16/23 21:39 22:25 Temp 36.7 36.7 Pulse 98 98 Resp 16 16 B/P (MAP) 131/84 (100) 131/84 Pulse Ox 98 98 O2 Delivery Room Air Room Air Blood Pressure Mean: 100 Progress Progress Note : Progress Note Symptoms seem to be of a radicular nature without any obvious focal muscle or joint injury. Patient is being treated with Toradol, hydrocodone, and cyclobenzaprine. If symptoms are not significantly better by morning, he may start the prescriptions provided. Prednisone steroid therapy was considered, but patient declined stating he becomes agitated with prednisone. This was added to his allergy profile as an adverse reaction. See discharge instructions for further discussion. Departure Impression Primary Impression: Pain of back and left lower extremity Disposition: HOME, SELF-CARE Condition: Improved Departure-Patient Inst. Decision time for Depature: 22:06 Referrals: NO,LOCAL PHYSICIAN (PCP/Family) Primary Care Physician Patient Instructions: Low Back Pain ED, Radiculopathy Add. Discharge Instructions: For primary pain control you may take ibuprofen up to 600 mg every 6 hours and Tylenol (acetaminophen) up to 1000 mg every 6 hours as needed. If your pain is not significantly improved by morning, you may start the prescriptions as directed. Use Ultram (tramadol) as a backup medication when Tylenol and ibuprofen are not sufficient. Use cyclobenzaprine at bedtime to help relax tense muscles if needed. Use Ultram (tramadol) with caution as it may cause drowsiness. Do not drive, operate machinery, or make important decisions while taking Ultram. Ultram may also cause constipation, so you may wish to use a stool softener such as Colace while taking it. Be sure to drink plenty of clear liquids to stay well-hydrated. Gentle stretching of your hamstring and back muscles may be helpful. If you are not getting satisfactory improvement over the next couple of days, return to care for further evaluation. Return to the emergency room if you develop true weakness in your leg, problems with bowel or bladder control, numbness in your groin, or escalating pain despite above treatment. Avoid heavy lifting, unnecessary bending, or other strenuous activities until pain resolves. All discharge instructions reviewed with patient and/or family. Voiced understanding. Scripts Cyclobenzaprine HCl (Cyclobenzaprine HCl) 10 Mg Tablet 10 MG PO HS PRN for SPASMS, #10 TAB Prov: JEFFREY LOVE MD 02/16/23 Tramadol HCl (Tramadol HCl) 50 Mg Tablet 50 MG PO Q6H PRN for PAIN BREAKTROUGH, #10 TAB Prov: JEFFREY LOVE MD 02/16/23 JEFFREY LOVE MD Feb 16, 2023 22:02
[2023-02-16] MEDS ORDERED: CYCL10TA25 PO (22:15)
[2023-02-16] MEDS ORDERED: TRM50T PO (22:15)
[2023-02-16 22:25] VITALS: BP 131/84
== END 2023-02-16 22:25 | disposition home or self-care (01) ==
LOC: EDUNIT# 21:36 → ER FS 21:38
DX: M54.50 Low back pain, unspecified (principal); M25.562 Pain in left knee; F17.210 Nicotine dependence, cigarettes, uncomplicated; Z28.310 Unvaccinated for COVID-19; X50.1XXA Overexertion from prolonged static or awkward postures, initial encounter
CPT/HCPCS: 99284